=== PATIENT | female | born 1935 | race African-American/Black ===

== ENCOUNTER → 2017-04-08 | Outpatient (CLI) | payer MEDICARE, MEDICAID ==
[~2017-04-08] MED LIST: ALLO100T PO; AMLO10TA80 PO; ASPI-1159 PO; ATEN-42 PO; BENA20TA3 PO; CLOP75TA16 PO; HYDR25TA PO; PRAV20TA57 PO; ROSU20TA PO
== END | disposition home or self-care (01) ==
LOC: MAMMO 07:57
PROVIDERS: ATTEND Neurological Surgery
DX: M51.26 Other intervertebral disc displacement, lumbar region (principal); M51.27 Other intervertebral disc displacement, lumbosacral region; M48.061 Spinal stenosis, lumbar region without neurogenic claudication; R92.8 Other abnormal and inconclusive findings on diagnostic imaging of breast
CPT/HCPCS: 72148; G0206

== ENCOUNTER 2018-01-12 07:08 | Inpatient (IN) | payer MEDICARE, MEDICAID ==
[2018-01-12] VITALS (24 sets, daily range): BP systolic 95–144; BP diastolic 45–118
[~2018-01-12] VITALS: Ht 162.6 cm; Wt 80.8 kg
[~2018-01-12 07:08] MED LIST changes: +BENA20TA10 PO; -BENA20TA3 PO
[2018-01-12] MEDS ORDERED: IODIXANOL 320MG/ML 100 ML BOTTLE IV ONE (07:38)
[2018-01-12] MEDS ORDERED: LIDOCAINE HCL 1% 10 MG/ML 10ML VIAL ONE ×3 (07:38→08:26)
[2018-01-12] MEDS ORDERED: NEBI5TAB3 MT (07:56)
[2018-01-12] MEDS ORDERED: VALS80TA30 MT (07:56)
[2018-01-12] MEDS ORDERED: ASPIRIN/SOD BICARB/CITRIC ACID 324MG TAB EFF ONE (08:02)
[2018-01-12] MEDS ORDERED: MIDAZOLAM HCL 2 MG/2 ML VIAL ONE (08:08)
[2018-01-12] MEDS ORDERED: FENTANYL CITRATE/PF 50MCG/ML 2ML VIAL ONE (08:08)
[2018-01-12] MEDS ORDERED: IOHEXOL-300 100 ML BOTTLE ONE (08:20)
[2018-01-12] MEDS ORDERED: CLOPIDOGREL 75MG TABLET ONE (09:43)
[2018-01-12] MEDS ORDERED: ONDANSETRON HCL 4MG/2ML INJ IV PRN (10:00)
[2018-01-12] MEDS ORDERED: CLOPIDOGREL 75MG TABLET PO SCH ×2 (10:00→11:00)
[2018-01-12] MEDS ORDERED: ATROPINE SULFATE 1MG/10ML SYR IV PRN (10:00)
[2018-01-12] MEDS ORDERED: ACETAMINOPHEN 325MG TABLET PO PRN (10:00)
[2018-01-12] MEDS ORDERED: LEVOFLOXACIN 500MG TABLET PO SCH (10:00)
[2018-01-12] MEDS ORDERED: SODIUM CHLORIDE 0.45% 1,000 ML IV ONE (11:00)
[2018-01-12] MEDS ORDERED: HEPARIN SODIUM 1,000 UNIT/1ML VIAL IV ONE (13:26)
[2018-01-13] VITALS (7 sets, daily range): BP systolic 104–124; BP diastolic 49–88
[2018-01-13 07:27] LABS: BASOPHILS % 0.8 % (0.0-2.0); EOSINOPHILS % 2.6 % (0.0-5.0); HEMATOCRIT. 29.6 % (36.0-48.0); HEMOGLOBIN. 9.9 g/dL (12.0-16.0); LYMPHOCYTES % 25.9 % (20.0-50.0); MEAN CORPUSCULAR HEMOGLOBIN 32.3 pg (28.0-32.0); MEAN CORPUSCULAR VOLUME 96.8 fL (81.0-99.0); MEAN PLATELET VOLUME 8.3 fl (7.4-10.4); MONOCYTES % 7.2 % (2.0-8.0); NEUTROPHILS % 63.5 % (40.0-76.0); PLATELET 222 x1000/uL (130-400); RED BLOOD CELL COUNT 3.06 mill/uL (4.2-5.4); RED CELL DISTRIBUTION WIDTH 14.6 % (11.6-14.6)
[2018-01-13] MEDS ORDERED: ASPIRIN 325MG TABLET PO SCH (09:00)
[2018-01-13] MEDS ORDERED: LOSARTAN POTASSIUM 25 MG TABLET PO SCH (09:00)
[2018-01-13] MEDS ORDERED: CLOPIDOGREL 75MG TABLET PO SCH (09:00)
== END 2018-01-13 11:00 | disposition home or self-care (01) | DRG 254 ==
LOC: CCL 07:08 → 3WST 07:09
PROVIDERS: ADMIT Specialist; ATTEND Specialist
PROC: 047K3D1 Dilation of Right Femoral Artery with Intraluminal Device, using Drug-Coated Balloon, Percutaneous Approach (ICD-10-PCS; principal; 2018-01-12)
PROC: 0YH Anatomical Regions, Lower Extremities, Insertion (ICD-10-PCS; 2018-01-12)
PROC: B41G1ZZ Fluoroscopy of Left Lower Extremity Arteries using Low Osmolar Contrast (ICD-10-PCS; 2018-01-12)
DX: I70.201 Unspecified atherosclerosis of native arteries of extremities, right leg (principal); Z96.653 Presence of artificial knee joint, bilateral; M19.90 Unspecified osteoarthritis, unspecified site; I71.4 Abdominal aortic aneurysm, without rupture; I25.10 Atherosclerotic heart disease of native coronary artery without angina pectoris; I10 Essential (primary) hypertension; E78.00 Pure hypercholesterolemia, unspecified; Z88.0 Allergy status to penicillin; Z88.8 Allergy status to other drugs, medicaments and biological substances; I73.9 Peripheral vascular disease, unspecified
CPT/HCPCS: 36415; 37226; 75710; 80048; 85025; 85347; 93005; C1725; C1760; C1769; C1876; C1887; C1893; C1894; J1644; J2250; J3010; J3490; Q9967